=== PATIENT | male | born 1975 | race Caucasian/White ===

== ENCOUNTER → 2020-01-03 | Outpatient (CLI) | payer SELFPAY ==
[~2020-01-03] VITALS: Ht 157.8 cm; Wt 59.0 kg
[~2020-01-03] MED LIST: GADOBUTROL 7.5 MMOL/7.5 ML (GADAVIST) VIAL IV ONE; HOLD METFORMIN - RECEIVED CONTRAST 20 ML VIAL IV SCH; IOHEXOL 350 MG/ML 100 ML (OMNIPAQUE 350) VIAL IV ONE
--- NOTE | 2020-01-03 17:27 | Diagnostic Imaging Report ---
PROCEDURE: MRI left joint upper extremity with contrast. TECHNIQUE: Multiplanar, multisequence intra-articular contrast-enhanced MRI of the left shoulder was accomplished. INDICATION: Left shoulder surgery two years ago with increasing pain. COMPARISON: None. FINDINGS: No acute fracture or dislocation is seen in the left shoulder. There are mild degenerative changes in the left acromioclavicular joint and glenohumeral joint. Alignment appears normal. Postsurgical changes are seen in the humeral head, with multiple suture anchors noted. The joint is well distended with contrast. There does appear to be high-grade partial-thickness tearing of the supraspinatus and infraspinatus tendons at the articular surface distally, measuring approximately 3 cm in size. There may be full-thickness components, however there is not significant contrast observed in the subacromial subdeltoid bursa. There is no muscular atrophy seen in the rotator cuff. The teres minor tendon is intact. The subscapularis tendon demonstrates partial-thickness tearing of the cranial fibers. There is longitudinal tearing of the proximal long head of the biceps tendon, which is displaced medially, perched on the lesser tuberosity and into the substance of the subscapularis tendon. (Image 16 series 4). There is tearing of the superior glenoid labrum extending to approximately 2 o'clock anteriorly and 10 o'clock posteriorly. There is also tearing at the inferior glenoid labrum (image 9 series 7). No paralabral cyst is seen. The acromion has a curved undersurface without hooking. The coracoclavicular and coracoacromial ligaments are intact. The soft tissues about the left shoulder demonstrate no acute abnormality. IMPRESSION: 1. High-grade partial-thickness tearing of the supraspinatus and infraspinatus tendons. No muscular atrophy is seen. No contrast extends into the subacromial subdeltoid bursa. 2. Longitudinal tearing of the proximal long head of the biceps tendon, which is displaced medially onto the lesser tuberosity and into the subscapularis tendon tear. 3. Tearing of the superior and inferior glenoid labrum. No paralabral cyst is seen. Dictated by: Dictated on workstation # [id number]
--- NOTE | 2020-01-04 08:38 | Diagnostic Imaging Report ---
INDICATION: Left shoulder pain. Patient brought to the procedure room and placed on the table in the supine position. Skin of the left shoulder was prepped and draped in usual sterile fashion. Small amount of 1% lidocaine was utilized for local anesthesia. 22-gauge needle was advanced into left shoulder at the rotator interval. A 15 mL solution of iodinated contrast, normal saline and gadolinium was injected under forthcoming observation. The needle was withdrawn, hemostasis was obtained. Total of 17 seconds of fluoroscopic time was utilized. The patient tolerated procedure well and was sent to MRI in satisfactory condition. IMPRESSION: Left shoulder injection of gadolinium contrast solution, using fluoroscopy. Dictated by: Dictated on workstation # [id number]
== END ==
LOC: RAD 12:27
PROVIDERS: ATTEND Nurse Practitioner
DX: S43.432A Superior glenoid labrum lesion of left shoulder, initial encounter (principal); S46.112A Strain of muscle, fascia and tendon of long head of biceps, left arm, initial encounter; M75.122 Complete rotator cuff tear or rupture of left shoulder, not specified as traumatic; Z98.890 Other specified postprocedural states
CPT/HCPCS: 23350; 73040; 73222